=== PATIENT | female | born 1970 | race Caucasian/White ===

== ENCOUNTER 2016-08-25 12:09 | Emergency (ER) | payer OTHER ==
--- NOTE | 2016-08-25 13:18 | ED NURSING NOTES ---
Clinical Report - Nurses [facility] [address] [place] [address] 08/25/2016 12:13 Patient: TONJA CHRISTINE TRIAGE Triage time 12:19 Aug 25 2016. Acuity: LEVEL 4. Chief Complaint: RIGHT LOWER TOOTHACHE and (pt reports "breaking a tooth" while eating a bagel, c/o pain - pt also reports being "depressed, lots of little things" denies SI). Alert. No acute distress. SEPSIS SCREEN: Sepsis Screen: negative. Negative (no infection suspected/documented). --12:29 Rl Lebron R.N. 12:19 08/25/16. BP: 115/80. HR: 87. RR: 17. O2 saturation: 94% on room air. Temp: 97.9 F (oral). Pain level now: /10. --12:29 Rl Lebron R.N. Weight: 72.5 kg stated. Height/Length: 66 inches Per Patient. BMI: 25.8. --12:26 Rl Lebron R.N. Medications Paxil Oral. --12:22 Rl Lebron R.N. Loratadine Allergy Relief Oral. --12:22 Rl Lebron R.N. Lisinopril Oral. --12:22 Rl Lebron R.N. Amlodipine. --12:23 Rl Lebron R.N. Ventolin HFA Inhalation. --12:23 Rl Lebron R.N. Advair Diskus Inhalation. --12:23 Rl Lebron R.N. Medication/allergy information source: the patient. --12:29 Rl Lebron R.N. Allergies None. --12:23 Rl Lebron R.N. History Arrived by private vehicle. Historian: patient. Accompanied by friend. Onset. (1 weeks ago). She has no dental appointment scheduled. No fever, hoarseness or facial pain. She has had a toothache (right lower molar). Treatment [employer]: Took ibuprofen. (pt reports taking 8 -200mg tablets, pt instructed on complications of taking ibuprofen in excess of recommended safe dosage). PAST MEDICAL HX: Immunizations: up-to-date. The patient is post-menopausal. Denies current . SOCIAL HX: Heavy tobacco smoker- less than 1 pack per day. No alcohol use or drug use. No infectious disease exposure. ABUSE ASSESSMENT: No report of abuse. SELF HARM ASSESSMENT: A self harm assessment was performed. The patient answered "no" to the question "Have you recently felt down, depressed, or hopeless?", "Have you noticed less interest or pleasure in doing things?", "Do you have thoughts of harming or killing yourself?", "Are you here because you tried to hurt yourself?", "Have you ever tried to hurt yourself before today?", "Have you recently had thoughts about harming or killing others?" and "Do you have any dangerous items in your possession?". FALL RISK ASSESSMENT: Fall risk assessment completed. No fall risk identified. NUTRITIONAL RISK ASSESSMENT: The nutritional risk assessment revealed no deficiencies. FUNCTIONAL ASSESSMENT: Functional assessment: no impairments noted. LEARNING NEEDS ASSESSMENT: The learning needs assessment revealed no barriers. SKIN INTEGRITY ASSESSMENT: Skin integrity risk assessment completed. No skin integrity risk identified. --12: Rl Lebron R.N. PROBLEMS: Syncope. Sinusitis. Dental Pain. Hip Fracture. Asthma. Hypertension. Depression. Back Injury. Lung Disease. Chronic Back Pain. Anxiety Reaction. --12: Rl Lebron R.N. ADDITIONAL SURGERIES: Hip Surgery. L hip surgery. Sinus Surgery. Tubal Ligation. --12:24 PageRl Byrd R.N. Interventions ID band on patient. To treatment room. --: Rl Lebron R.N. PHYSICAL ASSESSMENT GENERAL / NEURO / PSYCH: Alert. Oriented X 4. Appears in no acute distress. HEENT: Pupils equal, round and reactive to light. Voice within normal limits. Dental decay (right lower molar area). Mucous membranes are pink. RESPIRATORY: Respirations not labored. CVS: Capillary refill less than 2 seconds. SKIN: Skin is warm and dry. Normal skin turgor. --12:29 Rl Lebron R.N. NURSING PROGRESS NOTES Reassurance given. Two patient identifiers checked. Call light placed in reach. Side rails up x 1. Bed placed in lowest position. Brakes of bed on. Patient ready for evaluation- chart flagged. Patient waiting for evaluation. --12:29 Rl Lebron R.N. 13:17 08/25/2016 Amoxicillin PO Capsules 500 mg given. Allergies verified and confirmed 5 rights. --13:17 Rl Lebron R.N. 13:18 08/25/2016 Hydrocodone-APAP (Hydrocodone-Acetaminophen) PO 10/650 mg Tablets 2 tab given. Allergies verified, confirmed 5 rights and sedative warning given to the patient. --13:18 Rl Lebron R.N. 13:35. The patient is calm. Overall patient status is the same- she states feels the same. GENERAL / NEURO / PSYCH: Alert. Oriented X 4. RESPIRATORY: No respiratory distress. SKIN: Skin is warm and dry. --14:01 Bhargavi Perry R.N. DISPOSITION / DISCHARGE Departure time: 1335. Condition at departure: stable. No learning barriers present. Discharge instructions provided and reviewed with the patient. Reviewed medication(s). Prescription(s) given to the patient. Patient verbalized understanding. Written instructions provided in Turkmen. The patient was discharged home and unaccompanied at time of discharge. She left the Emergency Department ambulatory and via private vehicle. FALL RISK ASSESSMENT: Fall risk assessment completed. No fall risk identified. --14:01 Bhargavi Perry R.N. 13:35 08/25/16. BP: 117/73. HR: 82. RR: 16. O2 saturation: 100% on room air. Temp: 98.4 F (oral). --14:01 Bhargavi Perry R.N. Locked/Released at 08/25/2016 14:02 by Bhargavi Perry R.N.
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
--- NOTE | 2016-08-25 13:18 | ED ORDER SUMMARY ---
..... Patient: TONJA CHRISTINE OrderSheet [facility] VisitID: [id number] [address] [place] [address] 46y, F Registration Date/Time: 08/25/2016 ORDER SHEET Weight: 72.5 kg (stated) Allergies: None GENERAL ORDERS: MEDICATION ORDERS: Amoxicillin PO 500 mg (NOW) (13:10 08/25/2016 Butch P.A.-C) (13:17 Bea R.N.) Hydrocodone-APAP PO 10/650 mg (NOW, HIGH ALERT MEDICATION) (13:10 08/25/2016 Butch P.A.-C) (13:18 Bea R.N.) IV FLUIDS: ORDER SHEET NOTES: [Electronically signed by Bhargavi Perry R.N. (14:02 08/25/2016)] [Electronically signed by Georgina Haynes P.A.-C (16:06 08/25/2016)] [Electronically locked/signed by Bhargavi Perry R.N. (14:02 08/25/2016)]
--- NOTE | 2016-08-25 13:18 | ED ORDER SUMMARY ---
..... Patient: TONJA CHRISTINE OrderSheet [facility] VisitID: [id number] [address] [place] [address] 46y, F Registration Date/Time: 08/25/2016 ORDER SHEET Weight: 72.5 kg (stated) Allergies: None GENERAL ORDERS: MEDICATION ORDERS: Amoxicillin PO 500 mg (NOW) (13:10 08/25/2016 Butch P.A.-C) (13:17 Bea R.N.) Hydrocodone-APAP PO 10/650 mg (NOW, HIGH ALERT MEDICATION) (13:10 08/25/2016 Butch P.A.-C) (13:18 Bea R.N.) IV FLUIDS: ORDER SHEET NOTES: [Electronically signed by Bhargavi Perry R.N. (14:02 08/25/2016)] [Electronically signed by Georgina Haynes P.A.-C (16:06 08/25/2016)] [Electronically locked/signed by Bhargavi Perry R.N. (14:02 08/25/2016)]
--- NOTE | 2016-08-25 16:07 | ED MAR SUMMARY ---
..... Medication Administration Record [facility] [address] [place] [address] Patient: TONJA CHRISTINE Visit ID: [id number] 46y, F Weight: 72.5 kg Height/Length: 66 in BMI: 25.8 ALLERGIES: None Given 13:17 08/25/2016 Rl Lebron, RMathieuNMathieu Medication Administered: AMOXICILLIN [PO], Dose: 500 mg Capsules PO. Medication Ordered: Amoxicillin PO 500 mg (NOW). Given 13:18 08/25/2016 Rl Lebron, R.N. Medication Administered: HYDROCODONE-APAP [PO] (HYDROCODONE-ACETAMINOPHEN), Dose: 2 tab 10/650 mg Tablets PO. Medication Ordered: Hydrocodone-APAP PO 10/650 mg (NOW, HIGH ALERT MEDICATION).
--- NOTE | 2016-08-25 16:07 | ED MAR SUMMARY ---
..... Medication Administration Record [facility] [address] [place] [address] Patient: TONJA CHRISTINE Visit ID: [id number] 46y, F Weight: 72.5 kg Height/Length: 66 in BMI: 25.8 ALLERGIES: None Given 13:17 08/25/2016 Rl Lebron, RMathieuNMathieu Medication Administered: AMOXICILLIN [PO], Dose: 500 mg Capsules PO. Medication Ordered: Amoxicillin PO 500 mg (NOW). Given 13:18 08/25/2016 Rl Lebron, R.N. Medication Administered: HYDROCODONE-APAP [PO] (HYDROCODONE-ACETAMINOPHEN), Dose: 2 tab 10/650 mg Tablets PO. Medication Ordered: Hydrocodone-APAP PO 10/650 mg (NOW, HIGH ALERT MEDICATION).
--- NOTE | 2016-08-25 16:07 | ED DISCHARGE INSTRUCTIONS ---
Patient: TONJA CHRISTINE General Instructions [facility] VisitID: [id number] [place] [address] 46y, F Registration Date/Time: 08/25/2016 Moderate dental pain. INSTRUCTIONS Drink plenty of fluids. (Address: [place] [address] ). Prescription Medications: Amoxicillin 500 mg tablets: take 1 orally every 8 hours for 10 days. No refills. Follow-up: Follow up with a specialist in one week. ADDITIONAL INFORMATION Dental Pain A crack or cavity in the tooth, which exposes the sensitive inner area of the tooth can cause tooth pain. An infection in the gum or the root of the tooth can cause pain and swelling. The pain is often made worse by drinking hot or cold fluids, or biting on hard foods. Pain may spread from the tooth to the ear or jaw on the same side. Home Care: Avoid hot and cold foods and liquids since your tooth may be sensitive to temperature changes. If your tooth is chipped or cracked, or if there is a large open cavity, apply OIL OF CLOVES (available tswy-dya-gpatuku in drug stores) directly to the tooth to reduce pain. Some pharmacies carry an qltp-iua-pkoafji "toothache kit." This contains a paste, which can be applied over the exposed tooth to decrease sensitivity. A cold pack on your jaw over the sore area may help reduce pain. You may use acetaminophen (Tylenol) or ibuprofen (Motrin, Advil) to control pain, unless another medicine was prescribed. [ NOTE: If you have chronic liver or kidney disease or ever had a stomach ulcer or GI bleeding, talk with your doctor before using these medicines.] If you have signs of an infection, an antibiotic will be given. Take it as directed. Follow-Up as directed with a dentist. Your pain may go away with the treatment given. However, only a dentist can fully evaluate and treat the cause and prevent the pain from coming back again. TOOTHACHE IS A SIGN OF DISEASE IN YOUR TOOTH AND SHOULD BE EXAMINED AND TREATED BY A DENTIST. Get Prompt Medical Attention if any of the following occur: Your face becomes swollen or red Pain worsens or spreads to the neck Fever over 100.4 F (38.0 C) Unusual drowsiness; headache or stiff neck; weakness or fainting Pus drains from the tooth Difficulty swallowing or breathing Amoxicillin Trihydrate Oral tablet What is this medicine? AMOXICILLIN (a mox i RAUL in) is a penicillin antibiotic. It is used to treat certain kinds of bacterial infections. It will not work for colds, flu, or other viral infections. How should I use this medicine? Take this medicine by mouth with a glass of water. Follow the directions on your prescription label. You may take this medicine with food or on an empty stomach. Take your medicine at regular intervals. Do not take your medicine more often than directed. Take all of your medicine as directed even if you think your are better. Do not skip doses or stop your medicine early. Talk to your customer advocate regarding the use of this medicine in children. While this drug may be prescribed for selected conditions, precautions do apply. What side effects may I notice from receiving this medicine? Side effects that you should report to your doctor or health administrator health care facility as soon as possible: allergic reactions like skin rash, itching or hives, swelling of the face, lips, or tongue breathing problems dark urine redness, blistering, peeling or loosening of the skin, including inside the mouth seizures severe or watery diarrhea trouble passing urine or change in the amount of urine unusual bleeding or bruising unusually weak or tired yellowing of the eyes or skin Side effects that usually do not require medical attention (report to your doctor or health administrator health care facility if they continue or are bothersome): dizziness headache stomach upset trouble sleeping What may interact with this medicine? amiloride control pills chloramphenicol macrolides probenecid sulfonamides tetracyclines What if I miss a dose? If you miss a dose, take it as soon as you can. If it is almost time for your next dose, take only that dose. Do not take double or extra doses. Where should I keep my medicine? Keep out of the reach of children. Store between 68 and 77 degrees F (20 and 25 degrees C). Keep bottle closed tightly. Throw away any unused medicine after the expiration date. What should I tell my health care provider before I take this medicine? They need to know if you have any of these conditions: asthma kidney disease an unusual or allergic reaction to amoxicillin, other penicillins, cephalosporin antibiotics, other medicines, foods, dyes, or preservatives or trying to get breast-feeding What should I watch for while using this medicine? Tell your doctor or health administrator health care facility if your symptoms do not improve in 2 or 3 days. Take all of the doses of your medicine as directed. Do not skip doses or stop your medicine early. If you are diabetic, you may get a false positive result for sugar in your urine with certain brands of urine tests. Check with your doctor. Do not treat diarrhea with gbkd-qaq-[id number] products. Contact your doctor if you have diarrhea that lasts more than 2 days or if the diarrhea is severe and watery. You have been given the following additional information: Dental Pain Amoxicillin Trihydrate Oral tablet (Electronically signed by Georgina Haynse P.A.-C 08/25/2016 16:06)
--- NOTE | 2016-08-25 16:07 | ED MED RECONCILIATION SUMMARY ---
Patient: TONJA CHRISTINE Medication Reconciliation Report [facility] VisitID: [id number] [address] [address] 46y, F Registration Date/Time: 08/25/2016 Weight: 72.5 kg Height/Length: 66 in. BMI: 25.8 ALLERGIES: None The patient's Home Medications are listed below: THE FOLLOWING MEDICATIONS NEED TO BE RECONCILED: Advair Diskus Inhalation Amlodipine Lisinopril Oral Loratadine Allergy Relief Oral Paxil Oral Ventolin HFA Inhalation The source(s) of the original Home Medication information: patient The following Medications were given to the patient in the Emergency Department: Amoxicillin [PO] PO 500 mg, administered: 08/25/2016 1:17:00 PM Hydrocodone-APAP [PO] PO 2 tab, administered: 08/25/2016 1:18:00 PM The following Medications were prescribed to the patient: Amoxicillin 500 mg tablets: take 1 orally every 8 hours for 10 days. No refills. -- Georgina Haynes PMathieuAMathieu-C
--- NOTE | 2016-08-25 16:07 | ED MED RECONCILIATION SUMMARY ---
Patient: TONJA CHRISTINE Medication Reconciliation Report [facility] VisitID: [id number] [address] [place] [address] 46y, F Registration Date/Time: 08/25/2016 Weight: 72.5 kg Height/Length: 66 in. BMI: 25.8 ALLERGIES: None The patient's Home Medications are listed below: THE FOLLOWING MEDICATIONS NEED TO BE RECONCILED: Advair Diskus Inhalation Amlodipine Lisinopril Oral Loratadine Allergy Relief Oral Paxil Oral Ventolin HFA Inhalation The source(s) of the original Home Medication information: patient The following Medications were given to the patient in the Emergency Department: Amoxicillin [PO] PO 500 mg, administered: 08/25/2016 1:17:00 PM Hydrocodone-APAP [PO] PO 2 tab, administered: 08/25/2016 1:18:00 PM The following Medications were prescribed to the patient: Amoxicillin 500 mg tablets: take 1 orally every 8 hours for 10 days. No refills. -- Georgina Haynes PMatheiuAMathieu-C
--- NOTE | 2016-08-25 16:07 | ED DISCHARGE INSTRUCTIONS ---
Patient: TONJA CHRISTINE General Instructions [facility] VisitID: [id number] [place] [address] 46y, F Registration Date/Time: 08/25/2016 Moderate dental pain. INSTRUCTIONS Drink plenty of fluids. (Address: [place] [address] ). Prescription Medications: Amoxicillin 500 mg tablets: take 1 orally every 8 hours for 10 days. No refills. Follow-up: Follow up with a specialist in one week. ADDITIONAL INFORMATION Dental Pain A crack or cavity in the tooth, which exposes the sensitive inner area of the tooth can cause tooth pain. An infection in the gum or the root of the tooth can cause pain and swelling. The pain is often made worse by drinking hot or cold fluids, or biting on hard foods. Pain may spread from the tooth to the ear or jaw on the same side. Home Care: Avoid hot and cold foods and liquids since your tooth may be sensitive to temperature changes. If your tooth is chipped or cracked, or if there is a large open cavity, apply OIL OF CLOVES (available qhme-pmo-[id number] in drug stores) directly to the tooth to reduce pain. Some pharmacies carry an [id number] "toothache kit." This contains a paste, which can be applied over the exposed tooth to decrease sensitivity. A cold pack on your jaw over the sore area may help reduce pain. You may use acetaminophen (Tylenol) or ibuprofen (Motrin, Advil) to control pain, unless another medicine was prescribed. [ NOTE: If you have chronic liver or kidney disease or ever had a stomach ulcer or GI bleeding, talk with your doctor before using these medicines.] If you have signs of an infection, an antibiotic will be given. Take it as directed. Follow-Up as directed with a dentist. Your pain may go away with the treatment given. However, only a dentist can fully evaluate and treat the cause and prevent the pain from coming back again. TOOTHACHE IS A SIGN OF DISEASE IN YOUR TOOTH AND SHOULD BE EXAMINED AND TREATED BY A DENTIST. Get Prompt Medical Attention if any of the following occur: Your face becomes swollen or red Pain worsens or spreads to the neck Fever over 100.4 F (38.0 C) Unusual drowsiness; headache or stiff neck; weakness or fainting Pus drains from the tooth Difficulty swallowing or breathing Amoxicillin Trihydrate Oral tablet What is this medicine? AMOXICILLIN (a mox i RAUL in) is a penicillin antibiotic. It is used to treat certain kinds of bacterial infections. It will not work for colds, flu, or other viral infections. How should I use this medicine? Take this medicine by mouth with a glass of water. Follow the directions on your prescription label. You may take this medicine with food or on an empty stomach. Take your medicine at regular intervals. Do not take your medicine more often than directed. Take all of your medicine as directed even if you think your are better. Do not skip doses or stop your medicine early. Talk to your habitat biologist regarding the use of this medicine in children. While this drug may be prescribed for selected conditions, precautions do apply. What side effects may I notice from receiving this medicine? Side effects that you should report to your doctor or health home care assistant as soon as possible: allergic reactions like skin rash, itching or hives, swelling of the face, lips, or tongue breathing problems dark urine redness, blistering, peeling or loosening of the skin, including inside the mouth seizures severe or watery diarrhea trouble passing urine or change in the amount of urine unusual bleeding or bruising unusually weak or tired yellowing of the eyes or skin Side effects that usually do not require medical attention (report to your doctor or health home care assistant if they continue or are bothersome): dizziness headache stomach upset trouble sleeping What may interact with this medicine? amiloride control pills chloramphenicol macrolides probenecid sulfonamides tetracyclines What if I miss a dose? If you miss a dose, take it as soon as you can. If it is almost time for your next dose, take only that dose. Do not take double or extra doses. Where should I keep my medicine? Keep out of the reach of children. Store between 68 and 77 degrees F (20 and 25 degrees C). Keep bottle closed tightly. Throw away any unused medicine after the expiration date. What should I tell my health care provider before I take this medicine? They need to know if you have any of these conditions: asthma kidney disease an unusual or allergic reaction to amoxicillin, other penicillins, cephalosporin antibiotics, other medicines, foods, dyes, or preservatives or trying to get breast-feeding What should I watch for while using this medicine? Tell your doctor or health home care assistant if your symptoms do not improve in 2 or 3 days. Take all of the doses of your medicine as directed. Do not skip doses or stop your medicine early. If you are diabetic, you may get a false positive result for sugar in your urine with certain brands of urine tests. Check with your doctor. Do not treat diarrhea with vkha-nth-vkpokso products. Contact your doctor if you have diarrhea that lasts more than 2 days or if the diarrhea is severe and watery. You have been given the following additional information: Dental Pain Amoxicillin Trihydrate Oral tablet (Electronically signed by Georgina Haynes P.A.-C 08/25/2016 16:06)
== END 2016-08-25 13:35 | disposition home or self-care (01) ==
LOC: ED SRH 12:09
DX: K08.89 Other specified disorders of teeth and supporting structures (principal); I10 Essential (primary) hypertension; J45.909 Unspecified asthma, uncomplicated; Z79.51 Long term (current) use of inhaled steroids; Z79.899 Other long term (current) drug therapy

== ENCOUNTER 2016-10-27 11:41 | Emergency (ER) | payer OTHER ==
--- NOTE | 2016-10-27 19:18 | ED MED RECONCILIATION SUMMARY ---
Patient: TONJA CHRISTINE Medication Reconciliation Report [facility] VisitID: [id number] [address] [place] [address] 46y, F Registration Date/Time: 10/27/2016 Weight: (not available) Height/Length: (not available) BMI: (not available) ALLERGIES: None The patient's Home Medications are listed below: THE FOLLOWING MEDICATIONS NEED TO BE RECONCILED: Lisinopril Oral Lisinopril Oral Ventolin HFA Inhalation Ventolin HFA Inhalation The source(s) of the original Home Medication information: patient The following Medications were given to the patient in the Emergency Department: None. The following Medications were prescribed to the patient: None.
--- NOTE | 2016-10-27 19:18 | ED MAR SUMMARY ---
..... Medication Administration Record [facility] [address] [place], [place] [id number] Patient: TONJA CHRISTINE Visit ID: [id number] 46y, F Weight: (not available) Height/Length: (not available) BMI: (not available) ALLERGIES: None
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
--- NOTE | 2016-10-27 19:18 | ED MAR SUMMARY ---
..... Medication Administration Record [facility] [address] [place], [place] [id number] Patient: TONJA CHRISTINE Visit ID: [id number] 46y, F Weight: (not available) Height/Length: (not available) BMI: (not available) ALLERGIES: None
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
--- NOTE | 2016-10-27 19:18 | ED MED RECONCILIATION SUMMARY ---
Patient: TONJA CHRISTINE Medication Reconciliation Report [facility] VisitID: [id number] [address] [place] [address] 46y, F Registration Date/Time: 10/27/2016 Weight: (not available) Height/Length: (not available) BMI: (not available) ALLERGIES: None The patient's Home Medications are listed below: THE FOLLOWING MEDICATIONS NEED TO BE RECONCILED: Lisinopril Oral Lisinopril Oral Ventolin HFA Inhalation Ventolin HFA Inhalation The source(s) of the original Home Medication information: patient The following Medications were given to the patient in the Emergency Department: None. The following Medications were prescribed to the patient: None.
== END 2016-10-27 13:15 | disposition left against medical advice (07) ==
LOC: ED SRH 11:41
DX: S61.210A Laceration without foreign body of right index finger without damage to nail, initial encounter (principal); W26.8XXA Contact with other sharp object(s), not elsewhere classified, initial encounter; Y92.89 Other specified places as the place of occurrence of the external cause; Y99.0 Civilian activity done for income or pay; I10 Essential (primary) hypertension; Z72.0 Tobacco use